=== PATIENT | female | born 1965 | race Caucasian/White ===

== ENCOUNTER 2019-04-27 10:33 | Emergency (ER) | payer BC ==
--- NOTE | 2019-04-27 10:36 | Emergency Department Record ---
History of Present Illness - General Chief Complaint: Mental health evaluation Stated Complaint: MENTAL BREAKDOWN Time Seen by Provider: 04/27/19 10:34 Source: Patient Mode of Arrival: Ambulatory Limitations: No limitations - History of Present Illness Initial Comments: 53 yo female presents with 2 months of progressive concerning symptoms. She states she lives alone. Since February she has been having "conversations" with voices she is hearing in her head. She states she has conversations with people she knows and people she does not know. The conversations vary in content but are progressively becoming more distressing to the patient. She is tearful about the fact that she can not "control" them any longer. She does not state that she is going to kill herself but some conversations do center around "getting my affairs in order" so "it will be easier". She feels like she is constantly scarred and frightened that she can not control the symptoms. She has tried to see her PCP Dr Gonzalez but all appointments were full. She is not seeing any psychiatric counselor currently. She has in the past. She states she has significant depression and anxiety. She also stated her family history is very strong with psychiatric disease. She denies changes in her health, denies drugs or alcohol. -: Month(s) Associated Psychiatric Symptoms: Auditory hallucinations History of same: Yes Quality: Constant Improves With: None Worsens With: None Context: Significant life stressor Associated Symptoms: Confusion Treatments Prior to Arrival: None If Self Harm: Other - [place] Coma Scale Eye Response: (4) Open spontaneously Motor Response: (6) Obeys commands Verbal Response: (5) Oriented [place] Total: 15 - Related Data Allergies Allergy/AdvReac Type Severity Reaction Status Date / Time ibuprofen [From Motrin] AdvReac Intermediate ABDOMINAL Verified 04/27/19 10:44 PAIN Review of Systems Constitutional: Denies: Chills, Fever, Malaise, Weakness Eyes: Denies: Eye discharge ENT: Denies: Congestion, Throat pain Respiratory: Denies: Cough, Dyspnea Cardiovascular: Denies: Chest pain, Edema, Palpitations, Syncope Endocrine: Reports: Fatigue. Denies: Polydipsia, Polyuria Gastrointestinal: Denies: Abdominal pain, Diarrhea, Nausea, Vomiting Genitourinary: Denies: Dysuria, Urgency Musculoskeletal: Denies: Arthralgia, Back pain, Myalgia Skin: Denies: Bruising, Change in color, Rash Neurological: Denies: Headache, Numbness, Weakness Psychiatric: Reports: Anxiety, Auditory hallucinations, Depression. Denies: Homicidal thoughts, Suicidal thoughts, Visual hallucinations Hematological/Lymphatic: Denies: Anemia, Blood Clots, Easy bleeding, Easy bruising, Swollen glands Past Medical History - SOCIAL HISTORY Smoking Status: Current every day smoker - RESPIRATORY Hx Respiratory Disorders: Yes Comment:: smoker - CARDIOVASCULAR Hx Cardio Disorders: Yes - NEURO Hx Neuro Disorders: Yes Hx Weakness: Yes (right arm/hand) - GI Hx GI Disorders: Yes Hx Reflux: Yes (takes omeprazole) Hx Nausea/Vomiting: Yes (vomiting due to pain) - Hx Genitourinary Disorders: No Comment:: hysterectomy - ENDOCRINE Hx Endocrine Disorders: Yes Hx Diabetes: No Hx Thyroid Disease: Yes - MUSCULOSKELETAL Hx Musculoskeletal Disorders: No - PSYCH Hx Psych Problems: Yes Hx Anxiety: Yes Hx Depression: Yes - HEMATOLOGY/ONCOLOGY Hx Hematology/Oncology Disorders: No Family Medical History Hx Cancer: Father, Brother/Sister, Grandparents *Cancer Comment: father-skin cancer, brother-pancreatic cancer Hx Heart Disease: Father Hx HTN: Father Hx Stroke: Father Physical Exam - General General Appearance: Alert, Oriented x3, Cooperative, No acute distress, Other (Well dressed, clean, appears to take good self care) Limitations: No limitations - Head Head exam: Atraumatic, Normal inspection - Eye Eye exam: Normal appearance, PERRL. negative: Conjunctival injection, Scleral icterus - ENT ENT exam: Normal exam, Mucous membranes moist Ear exam: Normal external inspection Nasal Exam: Normal inspection Mouth exam: Normal external inspection - Neck Neck exam: Normal inspection - Respiratory Respiratory exam: Normal lung sounds bilaterally. negative: Accessory muscle use, Decreased breath sounds, Prolonged expiratory, Rhonchi, Stridor, Wheezes - Cardiovascular Cardiovascular Exam: Regular rate, Normal rhythm, Normal heart sounds - GI/Abdominal GI/Abdominal exam: Soft. negative: Guarding, Tenderness - Rectal Rectal exam: Deferred - exam: Deferred - Extremities Extremities exam: Normal inspection. negative: Calf tenderness, Pedal edema, Tenderness - Back Back exam: Denies: CVA tenderness (R), CVA tenderness (L) - Neurological Neurological exam: Alert, CN II-XII intact, Normal gait, Oriented X3. negative: Abnormal gait, Altered, Motor sensory deficit - Psychiatric Psychiatric exam: Anxious, Depressed, Flat affect, Other (Auditory hallucinations). negative: Agitated, Normal affect, Normal mood - Skin Skin exam: negative: Abrasion, Cyanosis, Diaphoretic, Dry, Erythema, Intact, Mottled Course - Reevaluation(s) Reevaluation #1: 04/27/19 11:09 I believe the patient posses a reasonable danger to herself with her progressive auditory hallucinations. I explained to her the Application and Certification process. I explained to her that she has a mental condition that will require hospitalization. 04/27/19 11:42 The CBC,CMP, and UA were reviewed No acute abnormality The Alcohol, Tylenol, and Aspirin Levels are negative 04/27/19 11:53 The TSH is normal The UDS is negative She was given a nicotine patch for smoking cravings The HCT is normal The patient is medically cleared for psychiatric supervisor shipping faxed info for referral 04/27/19 11:55 04/27/19 14:20 Waiting for review of the chart by psychiatric referral center 04/27/19 15:07 [facility] accepts the patient with Dr Coates as the intake physician. 04/27/19 15:08 Medical Decision Making - Lab Data Result diagrams: 04/27/19 11:10 04/27/19 11:10 Disposition Disposition: Transfer Clinical Impression: Psychosis, Auditory hallucinations Disposition: Psychiatric Hospital Transfer To: [facility] Reason For Transfer: Psychosis, Auditory Hallucinations Accepting Physician: Jaxon Time Discussed w/Accepting Physician: 15:08 Condition: (3) Guarded Forms: Patient Portal Access Time of Disposition: 15:08 Quality - Quality Measures Quality Measures: N/A - Blood Pressure Screening Does Patient Have Any of the Following: No Blood Pressure Classification: Hypertensive Reading Systolic Measurement: 154 Diastolic Measurement: 106 Screening for High Blood Pressure: < Pre-Hypertensive BP, F/U Documented > [G8950] Pre-Hypertensive Follow-up Interventions: Referral to alternative/primary care provider.
[2019-04-27 11:30] LABS: BLOOD UREA NITROGEN 12 mg/dL (6-20); CREATININE 0.7 mg/dL (0.5-0.9); EST GLOMERULAR FILTRATION RATE > 60 mL/min; TOTAL PROTEIN 7.4 g/dL (6.6-8.7)
[2019-04-27 11:31] LABS: ABSOLUTE NEUTROPHIL COUNT 5.11; BASO % 0.4 % (0-6); GRAN % 68.9 % (47-80); HEMATOCRIT 42.1 % (35.0-47.0); HEMOGLOBIN 14.1 gm/dl (11.6-16.0); LYMPH % 23.2 % (16-45); MEAN CELL VOLUME 91.3 fl (81-97); MEAN CORPUSCULAR HEMOGLOBIN 30.6 pg (27-33); MEAN CORPUSCULAR HGB CONC 33.5 g/dl (32-36); MEAN PLATELET VOLUME 11.5 fl (7.4-10.4); MONO % 5.5 % (0-9); PLATELET COUNT 178 K/uL (130-400); RED BLOOD COUNT 4.61 M/uL (3.80-5.40); WHITE BLOOD COUNT W/O DIFF 7.4 K/uL (4.2-12.2)
[2019-04-27 11:32] LABS: GLUCOSE,RANDOM 94 mg/dL (74-109)
[2019-04-27 11:35] LABS: URINE APPEARANCE CLEAR; URINE BILIRUBIN NEGATIVE (NEGATIVE); URINE BLOOD NEGATIVE (NEGATIVE); URINE COLOR YELLOW; URINE GLUCOSE (UA) NEGATIVE (NEGATIVE); URINE KETONE NEGATIVE (NEGATIVE); URINE LEUKOCYTE ESTERASE NEGATIVE (NEGATIVE); URINE NITRITE NEGATIVE (NEGATIVE); URINE PROTEIN NEGATIVE (NEGATIVE); URINE UROBILINOGEN 0.2 E.U./dL (0.20 - 1.00)
[2019-04-27 11:35] LABS: ACETAMINOPHEN < 5.0 ug/mL (10.0-30.0); ALB/GLOB RATIO 1.5 (1.1-1.8); ALBUMIN 4.4 g/dL (4.0-5.0); ALKALINE PHOSPHATASE 93 U/L (35-104); ALT/SGPT 14 U/L (<33); AST/SGOT 13 U/L (10.0-35.0)
[2019-04-27 11:38] LABS: SALICYLATE < 0.3 mg/dL (2.8-20)
--- NOTE | 2019-04-27 11:45 | CT SCAN REPORT ---
EXAMINATION: CT Head without IV Contrast EXAM DATE: 04/27/2019 11:26 AM TECHNIQUE: Standard protocol CT images of the head were obtained without intravenous contrast. Jaquez l and sagittal reconstructed images were created. INDICATION: auditory hallucinations COMPARISON: None HAND DOMINANCE: Unknown. ENCOUNTER: Not applicable FINDINGS: 1. There is no intracranial mass, midline shift, extraaxial fluid collection or hemorrhage. 2. The ventricles, sulci and cisterns are normal. 3. There are no suspicious area of altered attenuation. 4. There is no fracture. 5. Globes and orbits appear unremarkable. Mild mucosal thickening right maxillary sinus. Mastoid air cells are clear. IMPRESSION: 1. No acute intracranial process evident. Dictated by: Michael Devlin DO on 04/27/2019 11:42 AM. .
[2019-04-27 11:49] LABS: AMPHETAMINE SCREEN URINE NOT DETECTED; BARBITURATE SCREEN URINE NOT DETECTED; BENZODIAZEPINE SCREEN URINE NOT DETECTED; COCAINE SCREEN URINE NOT DETECTED; METHADONE SCREEN URINE NOT DETECTED; METHAMPHETAMINE SCREEN NOT DETECTED; OPIATE SCREEN URINE NOT DETECTED; OXYCODONE SCREEN URINE NOT DETECTED; PHENCYCLIDINE SCREEN URINE NOT DETECTED; PROPOXYPHENE SCREEN URINE NOT DETECTED; THC SCREEN URINE NOT DETECTED; TRICYCLIC ANTIDEPRESSANT SCRN NOT DETECTED
[2019-04-27] MEDS: NICOTINE 21 MG/24 HOUR PATCH TD SCH (12:12)
== END 2019-04-27 15:36 ==
LOC: ER 10:33
DX: R44.0 Auditory hallucinations (principal); F29 Unspecified psychosis not due to a substance or known physiological condition; F17.210 Nicotine dependence, cigarettes, uncomplicated
CPT/HCPCS: 70450; 80053; 80305; 80320; 80329; 81003; 84443; 85025; 99285